=== PATIENT | male | born 2000 | race Caucasian/White ===

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

== ENCOUNTER → 2021-07-27 | Outpatient (REF) | payer OTHER, MEDICAID ==
[~2021-07-27] MED LIST: CETI-24 PO; FLUTISP NARES; MECL-86 PO; ZOFR4TAB16 PO
== END ==
LOC: M SFHCCLAY 15:48
PROVIDERS: ATTEND Physician Assistant
DX: R21 Rash and other nonspecific skin eruption (principal)
CPT/HCPCS: 11104; 11105; 88305; G0463

== ENCOUNTER → 2021-07-27 | Outpatient (REF) | payer OTHER, MEDICAID | LOC: M SFHCCLAY 13:29 | PROVIDERS: ATTEND Physician Assistant | DX: R21 Rash and other nonspecific skin eruption (principal) ==

== ENCOUNTER 2024-01-10 12:04 | Emergency (ER) | payer OTHER ==
[~2024-01-10] VITALS: Ht 177.8 cm; Wt 76.4 kg
[2024-01-10] MEDS ORDERED: FEXO60TA99 (12:21)
[2024-01-10] MEDS ORDERED: IBUP200T46 PO (12:21)
[2024-01-10 14:58] VITALS: BP 127/74; TEMP 98.3; O2SAT 99
== END 2024-01-10 15:14 | disposition home or self-care (01) ==
LOC: M ED 12:04
DX: S80.02XA Contusion of left knee, initial encounter (principal); Y92.9 Unspecified place or not applicable; Y93.9 Activity, unspecified; Y99.0 Civilian activity done for income or pay; Z91.010 Allergy to peanuts; Z79.1 Long term (current) use of non-steroidal anti-inflammatories (NSAID); Z79.899 Other long term (current) drug therapy

== ENCOUNTER → 2024-06-19 | Outpatient (CLI) | payer OTHER, BC ==
[~2024-06-19] MED LIST changes: +FEXO60TA99; +IBUP200T46 PO
== END ==
LOC: M RAD 07:12
PROVIDERS: ATTEND Physician Assistant
DX: Z04.2 Encounter for examination and observation following work accident (principal); M67.52 Plica syndrome, left knee

== ENCOUNTER → 2024-11-20 | Outpatient (REF) | payer OTHER, BC | LOC: M SFHCPLAZ 10:26 | PROVIDERS: ATTEND Family Medicine | DX: L82.0 Inflamed seborrheic keratosis (principal) ==